=== PATIENT | female | born 1965 | race Caucasian/White ===

== ENCOUNTER 2023-04-15 06:52 | Day surgery (SDC) | payer OTHER, SELFPAY ==
[2023-04-15] VITALS (12 sets, daily range): BP systolic 101–139; BP diastolic 65–94; PULSE 40–73; RESP 14–18; TEMP 36.2–36.4; O2SAT 95–98; BMI 29.4
--- OUTSIDE RECORDS SUMMARY | 2023-04-15 06:54 | XMS_ITS | Encounter Summary ---
Author Name Unknown Organization [facility] Address [address] [place] [address] Care Team Providers Care Slope Tender Name Role Phone Elsewhere, Pcp Primary Care Provider Unavailabl e Reason for Visit * Reason Comments Knee Pain Presents with knee p ain that started this morning Encounter Details Date Type Department Care Team (Late st Contact Info) Description 01/26/2023 1:43 PM JAVA SWING DEVELOPER - 01/26/2023 4:11 PM JAVA SWING DEVELOPER Emergency [facility] [address] [place] [address] [phone] Shanell Ma, XIOMARA, C.N.P., R.N. [address] [phone] Pain Knee Left (Primary Dx) Discharge Disposition: Home or Self Care Social History Tobacco Use Types Packs/Day Years Used Date Smoking Tobacco: Never Smokeless Tobacco: Never Nutrition Answer Date Recorded Nutrition: EVOO Fat Source Unknown 04/21 Nutrition: Servings of Fruits/Vegetables per Day Not on file 04/21/2020 Dental Answer Date Recorded Dental: Regular Dentist Unknown 04/21/19 21 Sex and Gender Information Value Date Recorded Sex Assigned at Not on file Gender Identity Not on file Sexual Orientation Not on file documented as of this encounter Last Filed Vital Signs Vital Sign Reading Time Taken Comments Blood Pressure 159/76 01/26/2023 1:45 PM JAVA SWING DEVELOPER Pulse 61 01/26/2023 1:58 PM JAVA SWING DEVELOPER Temperature 36.8 ??C (98.2 ??F) 01/26/2023 1:58 PM CS T Respiratory Rate 16 01/26/2023 1:58 PM JAVA SWING DEVELOPER Oxygen Saturation 96% 01/26/2023 1:45 PM JAVA SWING DEVELOPER Inhaled Oxygen Concentration - - Weight - - Height - - Body Mass Index - - documented in this encounter Discharge Instructions * Discharge Instructions* Shanell Ma APRN, C.NCarlosP., R.N. - 01/26/2023 4:03 PM JAVA SWING DEVELOPER Plan Rest, ice Continue to use ibuprofen/Tylenol as needed Use knee immobilizer to help provide support Elevate Return emergency department for worsening symptoms or if you reconsider DVT (clot) workup. SWING DEVELOPER * Attachments The following attachments cannot be sent through Care Everywhere. * Acute Knee Pain Adult Jwyr-al-Hv[facility] ([place]) documented in this encounter ED Notes * Shanell Ma APRN, C.NYuki., R.N. - 01/26/2023 1:47 PM CST Images from the original note were not included. SUBJECTIVE CHIEF COMPLAINT/REASON FOR VISIT Knee Pain (Presents with knee pain that started this morning) HISTORY OF PRESENT ILLNESS History provided by: Patient and medical records lead business analyst needed/used: shirlene Leah Degroot is a very pleasant 57 y.o. with past medical history of knee pain who presents via private car from home/nursing facility/treatment facility for evaluation of knee pain. Patient with ongoing left knee pain over the past 5 years. She states she is normally able to manage with kqxn-hze-ywngvtp medication, rest and ice. Patient driving back from [place] today and had increased discomfort throughout her trip. She states they did get out of the car frequently during the [address] so that she was able to continue to move her leg. Onset of the discomfort started prior to the drive today. Reports some increased swelling around the knee. Onset 6:00 a.m. Location left knee, lateral Duration persistent/constant Character ache Alleviating minimal with ibuprofen aggravating factors ambulation Activity at onset noted this morning upon waking up Associated Sx swelling Radiation none REVIEW OF SYSTEMS Constitutional: Negative for chills and fever. HENT: Negative for congestion and sore throat. Respiratory: Negative for chest tightness and shortness of breath. Cardiovascular: Negative for chest pain and palpitations. Gastrointestinal: Negative for diarrhea, nausea and vomiting. Genitourinary: Negative for dysuria and hematuria. Skin: Negative for rash. Neurological: Negative for dizziness and weakness. OBJECTIVE Initial Vitals Temperature 01/26/23 1358 36.8 ??C Pulse Rate 01/26/23 1345 60 Heart Rate -- Resp Rate 01/26/23 1358 16 Blood Pressure 01/26/23 1345 159/76 SpO2 01/26/23 1345 96 % Pain Score 01/26/23 1357 4 PHYSICAL EXAMINATION Constitutional: Nursing note and vitals reviewed. She is cooperative. HENT: Head: Atraumatic. Mouth/Throat: Oropharynx is clear and moist. Mucous membranes are moist. Eyes: Conjunctivae are normal. Neck: Neck supple. Cardiovascular: Normal rate. Pulmonary/Chest: Effort normal. No respiratory distress. Abdominal: Normal appearance. Musculoskeletal: Cervical back: Neck supple. Left knee: Swelling present. No deformity, effusion or crepitus. Decreased range of motion (Increased discomfort with flexion). Tenderness present over the lateral joint line. Normal alignment. Normal pulse. Legs: Comments: Moves all extremities Distal pulses intact Brisk cap refill Neurological: Alert. Normal speech. Skin: No rash (on exposed skin) noted. ASSESSMENT/PLAN Assessment and Plan Leah Degroot is a 57 y.o. presents with knee pain concerning for DVT, sprain/strain, cellulitis, fractures, phlebitis, tendonitis, CHF, and venous insufficiency. See ED Course. . I reviewed the following external records: office records. ED Course as of 01/26/23 1607 Sun Jan 26, 2023 1347 I performed my initial evaluation of the patient. We discussed emergency department course including testing, treatment, potential disposition based on findings. 1439 Discussed x-ray as well as concern for DVT. Patient would like to proceed with x-ray however Declined d-dimer. Patient feels this is worsening of her chronic knee pain. We did discuss risks involved if blood clot/DVT were present including stroke/PE/disability or . Patient verbalizes understanding of the risk and continues to decline DVT work up at this time. Declines analgesia. 1558 Awaiting XR No acute fracture or dislocation per EDP read Discussed above with patient. Patient states that she has knee immobilizer at home that she will use when needed. She also states that she feels that she is ambulating better now than when she 1st arrived to the ED. patient does not want further workup for DVT despite risks. She has supportive devices home. Reviewing x-ray not seeing significant injury I agree discharge home with supportive devices is reasonable at this time. Discussed above impression, recommendations. Patient to call primary care tomorrow to follow-up, consider MRI. Questions answered to the best of my ability and patient discharged home in stable condition with . Final Diagnoses: as of 01/26/23 1607 Pain Knee Left Shanell Ma APRN, C.N.P., R.N. 01/26/23 1607 SWING DEVELOPER documented in this encounter Plan of Treatment Not on file documented as of this encounter Procedures Procedure Name Priority Date/Time Associated Diagnosis Comments DX KNEE LEFT 4+ VIEWS RAD - Semiurgent (Fast; most ED patients; some inpatients) 01/26/2023 2:54 PM JAVA SWING DEVELOPER documented in this encounter Results * DX Knee Left 4+ Views (01/26/2023 2:54 PM JAVA SWING DEVELOPER) Anatomical Region Laterality Modality Lower Extremity, Knee, Muscu loskeletal RST LOS, Musculoskeletal ARZ LOS, Muskuloskeletal FLA LOS Left Digit al Radiography 01/26/2023 4:22 PM JAVA SWING DEVELOPER Impressions 01/26/2023 4:22 PM JAVA SWING DEVELOPER Moderate knee joint effusion. No acute fracture. Slight tricompartmental degenerative change. Narrative 01/26/2023 4:22 PM JAVA SWING DEVELOPER EXAM: DX KNEE LEFT 4+ VIEWS Procedure Note Dylan Elder M.D. - 01/26/2023 EXAM: DX KNEE LEFT 4+ VIEWS IMPRESSION: Moderate knee joint effusion. No acute fracture. Slight tricompartmentaldegenerative change. Shanell Ma APRN, Rocco.N.P., R.N. I [facility] PROCEDURES documented in this encounter Visit Diagnoses Diagnosis Pain Knee Left- Primary documented in this encounter Care Teams Slope Tender Relationship Specialty Start Date End Date Elsewhere, Pcp PCP - General Family Medicine 06/05/20 documented as of this encounter
--- OUTSIDE RECORDS SUMMARY | 2023-04-15 06:54 | XMS_ITS | Clinical Summary ---
Author Name Unknown Organization [facility] Address [place], [place] [address] Care Team Providers Care Information Scientist Name Role Phone Nella Cordero MD Primary Care Provider [phone] Allergies No known active allergies Medications Medication Sig Dispensed Refills Start Date End Date Status triamcinolone (ARISTOCORT; KENALOG) 0.1 % creamIndications: Dermatitis Apply topically to affected area(s) three times daily. 80 g 0 11/06/2022 Active polyethylene glycol-electrolyt e (GOLYTELY) 236-22.74-6.74 -5.86 gram suspensionIndicat ions:Encounter for screening colonoscopy Drink 2 liters (half the bottle) the day before colonoscopy and 2 liters (remaining prep) 6 hours prior to colonoscopy appointment. 4000 mL 0 02/11/2023 04/09/2023 Discontinued (*Med complete/Reg imen complete/Lev el of care change) Active Problems Problem Noted Date Diagnosed Date Pap smear for cervical cancer screening 09/25/19 Overview: 01/25/2016 NIL/ HPV negative (scans 01/30/2018) 10/24/2021 NIL/ HPV negative Plan: Pap/ HPV due 09/2026 Menorrhagia with regular cycle 06/16/2018 Iron deficiency anemia due to chronic blood loss 06/16/2018 Encounters Date Type Department Care Team Description 04/09/2023 2:00 PM BLOOD AND PLASMA LABORATORY ASSISTANT Preop Visit [facility] [address] [place] [address] Nella Cordero MD Pre-Op Exam (04/15/23, left knee meniscus repair, [facility]) 04/09/2023 Travel 02/21/2023 Orders Only [facility] [address] [facility] [place] [address] Nella Cordero MD <No scans attached> 02/20/2023 9:30 AM BLOOD AND PLASMA LABORATORY ASSISTANT Ancillary Procedure [facility] [address] [facility] [address] 02/20/2023 Travel 02/18/2023 Travel 02/14/2023 9:30 AM BLOOD AND PLASMA LABORATORY ASSISTANT Procedure Only [facility] [address] [place] [address] Aguila Graham MD 02/14/2023 Travel 02/11/2023 Telephone [facility] [address] [facility] [place] [address] Aguila Graham MD Appointment 02/07/2023 Telephone [facility] [address] [place] [address] Aguila Graham MD Appointment Reminder (Colonoscopy 02/14/23); Follow Up 01/28/2023 11:15 AM BLOOD AND PLASMA LABORATORY ASSISTANT Office Visit [facility] [address] [place] [address] Nella Cordero MD ER Follow up ([facility], 01/26/2023, left knee) 01/28/2023 Travel 01/27/2023 Telephone [facility] [address] [place] [address] Nella Cordero MD Hospital F/U (KNEE PAIN) from Last 3 Months Immunizations Name Administration Dates Next Due Influenza, IIV4 11/06/2022,12/28/2020,11/07/2019 Influenza,CCIIV4 PRESERV FREE 12/11/2021 Td (Age >=7 Years) 07/14/2003 Tdap 01/25/2016 Zoster (Shingrix-RZV, recombinant) 10/30/2017, Family History Medical History Relation Name Comments Good Health Daughter 1 Good Health Daughter 2 Hypertension Father Diabetes Mother Hypertension Mother Cancer-breast No Family History Cancer-ovarian No Family History Relation Name Status Comments Daughter 1 Daughter 2 Father Alive Mother Alive Social History Tobacco Use Types Packs/Day Years Used Date Smoking Tobacco: Former Smokeless Tobacco: Never Tobacco Cessation:Counseling Given: Yes Alcohol Use Standard Drinks/Week Comments Yes 6 (1 standard drink = 0.6 oz pur e alcohol) PHQ-2 Answer Date Recorded PHQ-2 TOTAL SCORE 2 11/06/2022 Social Connections Answer Date Recorded Frequency of Communication with Friends and Fami ly 0 11/05/2022 Financial Resource Strain Answer Date R ecorded Difficulty of Paying Living Expenses 3 11/05/2022 Difficulty of Paying Living Expenses Not on file 11/05/2022 Food Insecurity Answer Date Recorded Worried About Running Out of Food in the Last Ye ar 1 11/05/2022 Transportation Needs Answer Date Record ed Lack of Transportation (Medical) 1 11/05/2022 Housing Stability Answer Date Recorded Unable to Pay for Housing in the Last Year 1 11/05/2022 Sex and Gender Information Value Date Recorded Sex Assigned at Not on file Gender Identity Not on file Sexual Orientation Not on file Travel History Travel Start Travel End [facility] 03/21/2023 03/30/2023 Obstetrics History Para Term AB IAB SAB Ectopic Multiple Livin g Live Births 2 2 2 2 Date Outcome GA Total Labor Labor/2nd/3rd Weight Sex Delivery Anes PTL Ysabel A1 A5 Name Cl in Para Para Last Filed Vital Signs Vital Sign Reading Time Taken Comments Blood Pressure 121/78 04/09/2023 2:14 PM BLOOD AND PLASMA LABORATORY ASSISTANT Pulse 59 04/09/2023 2:14 PM BLOOD AND PLASMA LABORATORY ASSISTANT Temperature 36.6 ??C (97.8 ??F) 04/21/2020 2:13 PM CS T Respiratory Rate 14 02/14/2023 10:35 AM BLOOD AND PLASMA LABORATORY ASSISTANT Oxygen Saturation 100% 04/09/2023 2:14 PM BLOOD AND PLASMA LABORATORY ASSISTANT Inhaled Oxygen Concentration - - Weight 87.7 kg (193 lb 6.4 oz) 04/09/2023 2:14 P M BLOOD AND PLASMA LABORATORY ASSISTANT Height 174.9 cm (5' 8.86) 04/09/2023 2:14 PM CS T Body Mass Index 28.68 04/09/2023 2:14 PM BLOOD AND PLASMA LABORATORY ASSISTANT Plan of Treatment Health Maintenance Due Date Last Done Comments HIV for age 15-65 1980 Mammogram for age 45-75 11/05/2023 11/05/19 23, 10/24/2021, 10/17/2020, Additional history exists Depression screening for age 12+ 11/08/2023 11/07/2022, 11/06/2022, 10/17/2020, Additional history exists BMI (ht and wt on same day) for age 18+ 04/09/2024 04/09/2023, 11/06/2022, 10/24/2021, Additional history exists Lipids for age 45-75 10/17/2025 10/17/2020 Tetanus booster 01/24/2026 01/25/2016, 07/14/2003 Pap test for age 21-65 10/24/2026 , 10/24/2021, 01/25/2016 (Verified in Care Everywhere or Patient Record) Colonoscopy through age 75 02/14/203002/14, 02/14/2023, 02/14/2023, Additional history exists Tdap Completed 01/25/2016 Zoster (shingles) series for age 50+ Completed 10/30/2017, 07/02/2017 Fecal testing non-DNA (FIT,FOBT,iFOBT) for age 45-75 Discontinued 12/22/2019 Hepatitis C screening for age 18-79 Completed 10/24/2021 Influenza for age 50-64 Completed 11/07/19, 12/11/2021, 12/28/2020, Additional history exists COVID-19 vaccine series Completed 12/01/19 23, 10/30/2021, 01/12/2021, Additional history exists Pneumococcal series for age 6-64 Aged Out No longer eligible based on patient's age to complete this topic Procedures Procedure Name Priority Date/Time Associated Diagnosis Comments MR KNEE LEFT WO Routine 02/20/2023 10:00 AM BLOOD AND PLASMA LABORATORY ASSISTANT Chronic pain of left knee COLONOSCOPY 02/14/2023 9:37 AM BLOOD AND PLASMA LABORATORY ASSISTANT COLONOSCOPY SCREENING Routine 02/14/2023 9:17 AM BLOOD AND PLASMA LABORATORY ASSISTANT History of colon polyps from Last 3 Months Results * MR KNEE LEFT WO (02/20/2023 10:00 AM BLOOD AND PLASMA LABORATORY ASSISTANT) Anatomical Region Laterality Modality KNEE L Magnetic Resonan ce 02/21/2023 11:1 7 AM BLOOD AND PLASMA LABORATORY ASSISTANT Impressions 02/21/2023 11:17 AM BLOOD AND PLASMA LABORATORY ASSISTANT 1. Multiple tearing medial meniscus. 2. Cleavage tear body lateral meniscus. 3. Mild tricompartmental degenerative chondromalacia. 4. Small joint effusion. Dictated by Tra Jason MD @ 02/21/2023 11:17:59 AM (Electronically Signed) Narrative 02/21/2023 11:17 AM BLOOD AND PLASMA LABORATORY ASSISTANT For Patients: ??As a result of the Cures Act, medical imaging exams and procedure reports are released immediately into your electronic medical record. ??You may view this report before your referring provider. ??If you have questions, please contact your health care provider. INDICATION: Left lateral knee pain. COMPARISON: None. TECHNIQUE: Axial T1 and PD fat-sat, sagittal PD and T2 fat-sat and coronal PD and PD fat- sat left knee sequences. FINDINGS: Medial compartment: Meniscus: Somewhat complex shallow degenerative tearing with mostly longitudinal orientation at the inner 3rd of the posterior horn. Marginal tearing extends to the junction with the root. Root is intact. Horizontal undersurface tear posterior body. Articular cartilage: Shallow grade 2 thinning. MCL: Intact. - Cruciate ligaments: ACL: Intact. PCL: Intact. - Lateral compartment: Meniscus: Horizontal tear may be cleavage-type exiting through the free margin in the body. Mucoid intersubstance signal in the posterior horn. Articular cartilage: Shallow undulating grade 2 thinning in the plateau. Lateral collateral complex: Thickened IT band proximal from the femoral condyle with no surrounding edema may be remote injury related. Remaining structures intact and unremarkable. - Patellofemoral compartment: Patchy increased T2 signal in shallow grade 2 thinning. - Extensor mechanism: Distal quadriceps tendon and patellar tendon are intact with anatomic patellar alignment. - Bones and soft tissues: Small joint effusion. Varices in the subcutaneous adipose. No fracture or bone lesion. Procedure Note Tra Jason MD - 02/21/2023 For Patients: As a result of the Cures Act, medical imagingexams and procedure reports are released immediately into your electronicmedical record. You may view this report before your referring provider.If you have questions, please contact your health care provider. INDICATION: Left lateral knee pain. COMPARISON: None. TECHNIQUE: Axial T1 and PD fat-sat, sagittal PD and T2 fat-sat and coronal PD and PDfat-sat left knee sequences. FINDINGS: Medial compartment: Meniscus: Somewhat complex shallow degenerative tearing with mostlylongitudinal orientation at the inner 3rd of the posterior horn. Marginaltearing extends to the junction with the root. Root is intact. Horizontalundersurface tear posterior body. Articular cartilage: Shallow grade 2 thinning. MCL: Intact. - Cruciate ligaments: ACL: Intact. PCL: Intact. - Lateral compartment: Meniscus: Horizontal tear may be cleavage-type exiting through the freemargin in the body. Mucoid intersubstance signal in the posterior horn. Articular cartilage: Shallow undulating grade 2 thinning in the plateau. Lateral collateral complex: Thickened IT band proximal from the femoralcondyle with no surrounding edema may be remote injury related. Remainingstructures intact and unremarkable. - Patellofemoral compartment: Patchy increased T2 signal in shallow grade 2thinning. - Extensor mechanism: Distal quadriceps tendon and patellar tendon areintact with anatomic patellar alignment. - Bones and soft tissues: Small joint effusion. Varices in the subcutaneousadipose. No fracture or bone lesion. IMPRESSION: 1. Multiple tearing medial meniscus. 2. Cleavage tear body lateral meniscus. 3. Mild tricompartmental degenerative chondromalacia. 4. Small joint effusion. Dictated by Tra Jason MD @ 02/21/2023 11:17:59 AM (Electronically Signed) Nella Cordero MD MR * COLONOSCOPY (02/14/2023 9:37 AM BLOOD AND PLASMA LABORATORY ASSISTANT) 02/14/2023 9:37 AM BLOOD AND PLASMA LABORATORY ASSISTANT Narrative Transcriptions Aguila Graham MD - 02/14/2023 11:16 AM CST Patient Name: Leah Nepali Procedure Date: 02/14/2023 Gender: Female Date of : 1965 Admit Type: Outpatient Procedure: Colonoscopy Proceduralist: Aguila Graham MD , Ingrid Dugan (Nurse), Mirna Felipe (Nurse) Referring MD: Nella Cordero Indications/Pre-Op Diagnosis: High risk colon cancer surveillance:Personal history of colonic polyps, Last colonoscopy: date unknown (unable to locate lastcolonoscopy report) Medications: Fentanyl 100 micrograms IV, Midazolam 3 mgIV, The level of sedation administered wasmoderate Procedure Description: The patient had risks, benefits and alternatives explained to andgave informed consent. The patient had a stable cardiopulmonary status and judged an adequate candidate for conscious sedation. The [id number] was passed through the anus and advanced to the cecum, identified by appendiceal orifice and ileocecal valve. Thecolonoscopy was performed without difficulty. The patient tolerated the procedure well. The quality of the bowel preparation was good. The ileocecal valve, appendiceal orifice, and rectum were photographed. Complications: No immediate complications. Estimated Blood Loss & Specimen: Estimated blood loss: none. Specimen collected - None Findings: The perianal and digital rectal examinations were normal. The entire examined colon appeared normal. Impressions/Post-Op Diagnosis: - The entire examined colon is normal. - No specimens collected. Recommendation: - Patient has a contact number available for emergencies. The signsand symptoms of potential delayed complications were discussed with the patient. Return to normal activities tomorrow. Written discharge instructions were provided to the patient. - Resume previous diet. - Continue present medications. - Repeat colonoscopy in 7-10 years for surveillance. Moderate Sedation: A time out was performed before the procedure. Moderate (conscious) sedation was administered by the endoscopy nurse and supervised bythe endoscopist. The following parameters were monitored: oxygensaturation, heart rate, blood pressure, EKG, CO2, respiratory rate, adequacy of pulmonary ventilation and reponse to care. Please refer to the patient's medical record flowsheets and nursing notes for moderate sedation details. Total physician intraservice time was 15 minutes. Aguila Graham MD 02/14/2023 10:20:52 AM This report has been signed electronically. Note Initiated On: 02/14/2023 9:37 AM Procedure Code(s): --- Professional --- 85911, Colonoscopy, flexible; diagnostic, including collection of specimen(s) bybrushing or washing, when performed (separateprocedure) Diagnosis Code(s): --- Professional --- Z86.010, Personal history of colonicpolyps CPT copyright 2021 [employer]. All rights reserved. The codes documented in this report are preliminary and upon performance tester reviewmay be revised to meet current compliance requirements. Scope In: 9:53:09 AM Scope Withdrawal Time 0 hours 7 minutes 5 seconds Scope Out: 10:06:08 AM Aguila Graham MD PROCEDURE ORD from Last 3 Months Care Teams Information Scientist Relationship Specialty Start Date End Date Nella Cordero MD [address] [place] [address] PCP - General Family Practice 06/16/18
--- OUTSIDE RECORDS SUMMARY | 2023-04-15 06:54 | XMS_ITS ---
Author Name Unknown Organization [facility] Address [address] [place] [address] Care Team Providers Care Bricklayer Tender Name Role Phone Unavailable Unavailable Unavailable Surgery Details Not on file Complications Check Surgery Details section. Procedure Estimated Blood Loss Check Surgery Details section. Procedure Findings Check Surgery Details section. Procedure Specimens Taken Check Surgery Details section.
--- OUTSIDE RECORDS SUMMARY | 2023-04-15 06:54 | XMS_ITS | Referral Summary ---
Author Name Unknown Organization [facility] Address [address] [place] [address] Care Team Providers Care Python Web Developer Name Role Phone Elsewhere, Pcp Primary Care Provider Unavailabl e Source Comments Patient records contain information from all sites at [facility]. For routine questions regarding patient records, call [phone] during business hours, M-F 8:00 AM - 5:00 PM Central Time. Record requests for emergency care only can be directed to [phone] at any time.[facility] Encounters Date Type Department Care Team Description 02/05/2023 2:15 PM MAGNETIC HEALER Comprehensive Visit Department of Rehabilitation Services in [address] [phone] Nella Cordero M.D. Sharon Mckeon, P.T. Pain Knee Left; Other Chronic Pain 01/26/2023 1:43 PM MAGNETIC HEALER - 01/26/2023 4:11 PM MAGNETIC HEALER Emergency [facility] [address] [place] [phone] Shanell Ma, XIOMARA, C.N.P., R.N. Pain Knee Left (Primary Dx) Discharge Disposition: Home or Self Care from Last 3 Months Allergies No known active allergies Medications No known medications Active Problems Problem Noted Date Diagnosed Date No Current Problems or Disability 05/22/2013 Overview: NO ACTIVE PROBLEMS Immunizations Name Administration Dates Next Due RZV (SHINGRIX) 10/30/2017,07/02/2017 Td (Adult), adsorbed 07/14/2003 Tdap 01/25/2016 Social History Tobacco Use Types Packs/Day Years [...] on file Sexual Orientation Not on file Last Filed Vital Signs Vital Sign Reading Time Taken Comments Blood Pressure 159/76 01/26/2023 1:45 PM MAGNETIC HEALER Pulse 61 01/26/2023 1:58 PM MAGNETIC HEALER Temperature 36.8 ??C (98.2 ??F) 01/26/2023 1:58 PM CS T Respiratory Rate 16 01/26/2023 1:58 PM MAGNETIC HEALER Oxygen Saturation 96% 01/26/2023 1:45 PM MAGNETIC HEALER Inhaled Oxygen Concentration - - Weight 87.6 kg (193 lb 2 oz) 06/18/2017 10:10 AM CDT Height 174 cm (5' 8.5) 06/18/2017 10:10 AM CDT Body Mass Index 28.93 06/18/2017 10:10 AM CDT Plan of Treatment Not on file Procedures Procedure Name Priority Date/Time Associated Diagnosis Comments DX KNEE LEFT 4+ VIEWS RAD - Semiurgent (Fast; most ED patients; some inpatients) 01/26/2023 2:54 PM MAGNETIC HEALER from Last 3 Months Results * DX Knee Left 4+ Views (01/26/2023 2:54 PM MAGNETIC HEALER) Anatomical Region Laterality Modality Lower Extremity, Knee, Muscu loskeletal RST LOS, Musculoskeletal ARZ LOS, Muskuloskeletal FLA LOS Left Digit al Radiography 01/26/2023 4:22 PM MAGNETIC HEALER Impressions 01/26/2023 4:22 PM MAGNETIC HEALER Moderate knee joint effusion. No acute fracture. Slight tricompartmental degenerative change. Narrative 01/26/2023 4:22 PM MAGNETIC HEALER EXAM: DX KNEE LEFT 4+ VIEWS Procedure Note Dylan Elder M.D. - 01/26/2023 EXAM: DX KNEE LEFT 4+ VIEWS IMPRESSION: Moderate knee joint effusion. No acute fracture. Slight tricompartmentaldegenerative change. Shanell Ma APRN, C.N.P., R.N. I MG DIAGNOSTIC IMAGING PROCEDURES from Last 3 Months Care Teams Python Web Developer Relationship Specialty Start Date End Date Elsewhere, Pcp PCP - General Family Medicine 06/05/20
--- OUTSIDE RECORDS SUMMARY | 2023-04-15 06:54 | XMS_ITS | Encounter Summary ---
Author Name Unknown Organization [facility] Address [address] [place] [address] Care Team Providers Care Corporate Pilot Name Role Phone Elsewhere, Pcp Primary Care Provider Unavailabl e Encounter Details Date Type Department Care Team (Latest Contact Info) Description 06/24/2022 10:30 AM CDT Clinical Support Department of Integrative Medicine in [place], [place] [address] [place] [phone] Jeanie Bear M.D. 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 She also wants something to strengthen her core and release tension in her neck. Her left knee bothers heronce in awhile. I observed she has tight quads and hip flexors. I directed her to do several movements to observe where she is tight and where she is weak. We wentthrough a series of poses on the ground and then did a few standing. She will most probably do her practice in the afternoon or early evening. We agreed she would practice the routine that I design for her and come back for another private in 6-8 weeks. documented in this encounter Plan of Treatment Not on file documented as of this encounter Visit Diagnoses Not on filedocumented in this encounter Care Teams Corporate Pilot Relationship Specialty Start Date End Date Elsewhere, Pcp PCP - General Family Medicine 06/05/20 documented as of this encounter
--- OUTSIDE RECORDS SUMMARY | 2023-04-15 06:54 | XMS_ITS | Encounter Summary ---
Author Name Unknown Organization [facility] Address [address] [place] [address] Care Team Providers Care Traffic Clerk Name Role Phone Elsewhere, Pcp Primary Care Provider Unavailabl e Reason for Visit * Appointment Request (Routine) - Closed Specialty Diagnoses / Procedures Referred By Contact Referred To Contact Physical Medicine and Rehabilitation Referral ID Status Reason Start Date Expiration Date Visits Re quested Visits Authorized [id number] Closed 01/28/2023 01/28/2024 1 1 Encounter Details Date Type Department Care Team (Latest Contact Info) Description 02/05/2023 2:15 PM ROUTER OPERATOR PIN Comprehensive Visit Department of Rehabilitation Services in [address] [phone] Nella Cordero M.D. [address] [place] [phone] Sharon Mckeon, P.T. [address] [place] [phone] Pain Knee Left; Other Chronic Pain Social History Tobacco Use Types Packs/Day Years [...] on file documented as of this encounter Consult Notes * Sharon Mckeon, P.T. - 02/05/2023 2:15 PM CST Physical Therapy Outpatient Evaluation/Treatment SUBJECTIVE Patient's Name: Leah Degroot Referring Provider: No ref. provider found Visit Diagnosis: 1. Pain Knee Left 2. Other Chronic Pain Reason for Referral: PT eval and treat Payor: [employer] / Plan: [employer] / Product Type: Indemnity / Epic Visit Count: 1 PERTINENT MEDICAL / SURGICAL HISTORY: Patient Active Problem List Diagnosis No Current Problems or Disability Past Surgical History: Procedure Laterality Date APPENDECTOMY at age 9 COLONOSCOPIC POLYPECTOMY N/A 02/15/2016 Colonoscopic polypectomy Patient presents to outpatient physical therapy for evaluation of symptoms including: Left knee pain History of Present Illness: Patient reports a chronic history of left knee pain over the last 5-10 years. She reports intermittent flares which team to improve with rest and ice. Patient reports she had increased difficulty over the summer where she was unable to bike she was walking 4 miles a day and was icing routinely. Recently she went to a wedding and had a 7 hour car ride and was unable to weightbear through the left lower extremity after that. Patient denies any catching, locking or giving out. Patient's symptoms are located on posterior lateral corner of the left knee with some intermittent pain along the inferior medial border of the patella. Aggravating Factors: Descending stairs while flexing the knee. Relieving Factors: Icing, ibuprofen. Prior Function/Occupational Profile: Intermittent history of left knee pain with resolution of symptoms in between episodes. Patient has a massage therapist. Additional Staff Present During Session: no Patient goals: Resolution of symptoms OBJECTIVE PHYSICAL EXAM Pain: 4/10-10/10 left posterolateral knee. Ortho Exam Patient ambulates into physical therapy safely independently with a nonantalgic gait pattern. Patient has palpable discomfort in the left posterolateral corner of the knee. Knee range of motion 0?? of knee extension which is uncomfortable at end range to 135?? of knee flexion. Patient demonstrates normal patellar mobility. Patient demonstrates independent quad set. Patient demonstrates independent straight leg raise without extension lag. Manual muscle testing the left lower extremity is a 5/5 in strength with the exception of the gluteus medius at a 4/5. Vivek's test did reproduce discomfort. No catching or locking noted. Anterior-posterior drawer were negative. Valgus and varus stresses were negative. Samreen's test was negative. Left knee X-Ray 01/26/23: IMPRESSION: Moderate knee joint effusion. No acute fracture. Slight tricompartmental degenerative change. TREATMENT Treatment today consisted of: Today we initiated patient education in home exercise program. Home Exercise Program/Education: Access Code: [email or web address] URL: [email or web address] Date: 02/05/2023 Prepared by: Sharon Mckeon Exercises - Standing Hamstring Stretch with Step - 1 x daily - 7 x weekly - 1 sets - 2 reps - 30 hold - Standing Bilateral Gastroc Stretch with Step - 1 x daily - 7 x weekly - 1 sets - 2 reps - 30 hold - Standing Soleus Stretch on Step - 1 x daily - 7 x weekly - 1 sets - 2 reps - 30 hold - Supine Quadriceps Stretch with Strap on Table - 1 x daily - 7 x weekly - 1 sets - 2 reps - 30 hold - Supine Quad Set - 1 x daily - 7 x weekly - 3 sets - 10 reps - Supine Straight Leg Raises - 1 x daily - 7 x weekly - 3 sets - 10 reps - Sidelying Hip Abduction - 1 x daily - 7 x weekly - 3 sets - 10 reps - Seated Hip Abduction with Resistance - 1 x daily - 7 x weekly - 3 sets - 10 reps Assessment Clinical Impression: Patient presents to physical therapy with signs and symptoms consistent with left knee pain. Impairments: Pain, tightness, and weakness. Functional deficits: Decreased positional activity tolerance. Rehab Potential: Patient has good potential to achieve established physical therapy goals within the time frame outlined below, provided active participation in the physical therapy treatment plan and home program. Functional Goals and Timeframes: PT Outpatient Goals PT Goal #1: Patient will safely independently perform an independent home exercise program. PT Goal #1 Date: 03/21/23 PT Goal #2: Patient will be able to walk her dog without pain reproduction. PT Goal #2 Date: 03/21/23 PT Goal #3: Patient will be able to descend stairs without pain reproduction. PT Goal #3 Date: 03/21/23 PT Goal #4: Patient will demonstrate left lower extremity strength at a 5/5. PT Goal #4 Date: 03/21/23 Plan Patient was educated regarding evaluative findings, diagnosis, prognosis, potential risks and benefits of rehabilitation interventions. A collaborative effort was used to establish goals and plan of care. The patient was informed of the right to make decisions regarding care, including refusal of examination or treatment or selection of services from another provider if desired. The treatment plan may be progressed or modified based upon the patient's response to treatment. Treatment Plan: Start of Plan of Care: 02/05/2023 Number of Visits: Up to 6 visits PT Duration: 6 weeks PT Frequency: Up to 1 time per week Treatment interventions may include: Patient education, home exercise program, strengthening and stretching. Plan for next session: Patient will work on independent home exercise program return if symptoms are not improving or for progression of home exercise program. Time Spent with Patient Evaluations PT Eval - Low Complexity: 40 min Time Tracking Total Treatment Time (min): 40 min ER OPERATOR PIN documented in this encounter Plan of Treatment Not on file documented as of this encounter Visit Diagnoses Diagnosis Pain Knee Left Other Chronic Pain documented in this encounter Care Teams Traffic Clerk Relationship Specialty Start Date End Date Elsewhere, Pcp PCP - General Family Medicine 06/05/20 documented as of this encounter
--- OUTSIDE RECORDS SUMMARY | 2023-04-15 06:54 | XMS_ITS | Clinical Summary ---
Author Name Unknown Organization [facility] Address [address] [place] [address] Care Team Providers Care Bilingual Teacher Name Role Phone Elsewhere, Pcp Primary Care Provider Unavailabl e Source Comments Patient records contain information from all sites at [facility]. For routine questions regarding patient records, call [phone] during business hours, M-F 8:00 AM - 5:00 PM Central Time. Record requests for emergency care only can be directed to [phone] at any time.[facility] Allergies No known active allergies Medications No known medications Active Problems Problem Noted Date Diagnosed Date No Current Problems or Disability 05/22/2013 Overview: NO ACTIVE PROBLEMS Encounters Date Type Department Care Team Description 02/05/2023 2:15 PM VAMP WETTER Comprehensive Visit Department of Rehabilitation Services in [address] [phone] Nella Cordero M.D. Fogarty, Jennifer L, P.T. Pain Knee Left; Other Chronic Pain 01/26/2023 1:43 PM VAMP WETTER - 01/26/2023 4:11 PM VAMP WETTER Emergency [facility] [address] [place] [phone] Shanell Ma, XIOMARA, C.N.P., R.N. Pain Knee Left (Primary Dx) Discharge Disposition: Home or Self Care from Last 3 Months Immunizations Name Administration Dates Next Due RZV (SHINGRIX) 10/30/2017,07/02/2017 Td (Adult), adsorbed 07/14/2003 Tdap 01/25/2016 Family History Medical History Relation Name Comments Hyperlipidemia Father Diabetes Mother Relation Name Status Comments Father Mother Social History Tobacco Use Types Packs/Day Years [...] Comments Blood Pressure 159/76 01/26/2023 1:45 PM VAMP WETTER Pulse 61 01/26/2023 1:58 PM VAMP WETTER Temperature 36.8 ??C (98.2 ??F) 01/26/2023 1:58 PM CS T Respiratory Rate 16 01/26/2023 1:58 PM VAMP WETTER Oxygen Saturation 96% 01/26/2023 1:45 PM VAMP WETTER Inhaled Oxygen Concentration - - Weight 87.6 kg (193 lb 2 oz) 06/18/2017 10:10 AM CDT Height 174 cm (5' 8.5) 06/18/2017 10:10 AM CDT Body Mass Index 28.93 06/18/2017 10:10 AM CDT Plan of Treatment Health Maintenance Due Date Last Done Comments CT Colonography 1965 Cologuard 1965 HIV Screening 1965 Hepatitis B Vaccines (1 of 3 - 3-dose series) 1965 Hepatitis C Screening 1965 Cervical Cancer Screening 01/24/2021 01/25/2016 Colonoscopy 02/14/2023 02/15/2016 Colorectal Cancer Surveillance 02/14/2023 Depression Screening (Annual PHQ-2) 02/24/2023 Fasting Glucose for Diabetes Screening 10/18/2023 10/17/2020, 06/16/2018, 06/05/2016 Mammogram 11/05/2023 11/04/2022, 10/25, 10/24/2021, Additional history exists Lipid (Cholesterol) Screening 10/17/2025 10/17/2020, 06/05/2016, 07/30/2011 DTaP,Tdap,and Td Vaccines (2 - Td or Tdap) 01/24/2026 01/25/2016, 07/14/2003 Zoster Vaccines Completed 10/30/2017, 07/02/2017 Influenza Vaccine Completed 11/06/2022, , 12/28/2020, Additional history exists COVID-19 Vaccine Completed 11/30/2022, 07/2021, 01/12/2021, Additional history exists Pneumococcal vaccine (0-64 years) Aged Out No longer eligible based on patient's age to complete this topic Procedures Procedure Name Priority Date/Time Associated Diagnosis Comments DX KNEE LEFT 4+ VIEWS RAD - Semiurgent (Fast; most ED patients; some inpatients) 01/26/2023 2:54 PM VAMP WETTER from Last 3 Months Results * DX Knee Left 4+ Views (01/26/2023 2:54 PM VAMP WETTER) Anatomical Region Laterality Modality Lower Extremity, Knee, Muscu loskeletal RST LOS, Musculoskeletal ARZ LOS, Muskuloskeletal FLA LOS Left Digit al Radiography 01/26/2023 4:22 PM VAMP WETTER Impressions 01/26/2023 4:22 PM VAMP WETTER Moderate knee joint effusion. No acute fracture. Slight tricompartmental degenerative change. Narrative 01/26/2023 4:22 PM VAMP WETTER EXAM: DX KNEE LEFT 4+ VIEWS Procedure Note Dylan Elder M.D. - 01/26/2023 EXAM: DX KNEE LEFT 4+ VIEWS IMPRESSION: Moderate knee joint effusion. No acute fracture. Slight tricompartmentaldegenerative change. Shanell Ma APRN C.N.P., R.N. I MG DIAGNOSTIC IMAGING PROCEDURES from Last 3 Months Care Teams Bilingual Teacher Relationship Specialty Start Date End Date Elsewhere, Pcp PCP - General Family Medicine 06/05/20
[2023-04-15] MEDS: LACTATED RINGERS 1000 ML 1,000 ML 100 ML IV (08:02)
[2023-04-15] MEDS: SODIUM CHLORIDE 0.9 % (FLUSH) 10 ML SYRINGE IVF (08:02)
--- NOTE | 2023-04-15 08:02 | SUR.PREOP ---
pt states she is going through menopause and declines a urine test.
[2023-04-15] MEDS: CEFAZOLIN 2 GM INJ IVP (08:47)
[2023-04-15] MEDS: BUPIVACAINE 0.25% 30 ML INJECTION (09:18)
--- NOTE | 2023-04-15 09:21 | P.ORPRC_ITS ---
Procedure Note Date of procedure: 04/15/23 Procedure: PREOPERATIVE DIAGNOSIS: Left knee medial and lateral meniscus tear POSTOPERATIVE DIAGNOSIS: Left knee medial and lateral meniscus tear NAME OF OPERATION: Left knee arthroscopic partial medial and lateral meniscectomy SURGEON: Julio Escamilla MD INSTRUCTIONAL TECHNOLOGY SPECIALIST: DINORAH Crabtree ANESTHESIA: Spinal ESTIMATED BLOOD LOSS: 0 mL COMPLICATIONS: None SPECIMENS: None DRAINS: None PREOPERATIVE ANTIBIOTICS: Ancef 2 gram INDICATIONS: The patient is a 57-year-old with a history of left knee pain. MRI scan is consistent with a medial and lateral meniscus tear. Despite appropriate nonoperative management, including activity modification, antiinflammatories, [id number] pain medication, bracing, physical therapy, and injections they continue to have pain and disability. Operative intervention was offered. The risks, benefits and expected outcomes were discussed in detail. These included but were not limited to: Infection, bleeding, injury to blood vessel or nerve, venous thromboembolism. All questions were answered to their satisfaction. PROCEDURE: Spinal anesthesia was administered. The patient was placed supine on the operating room table. The left lower extremity was prepped and draped in the usual sterile fashion. The limb was exsanguinated with the Aguila bandage. The pneumatic tourniquet was inflated to 300 mmHg. A standard anterolateral portal was established. The arthroscope was introduced. The working portal was established anteromedially. Diagnostic arthroscopy was performed with findings as follows: The suprapatellar pouch is normal. Articular surface on the patella shows diffuse grade 1/2 change. Articular surface on the trochlea is normal. The medial gutter is normal. The medial compartment shows a focal area of grade 2/3 foreign exchange trader the posterior aspect of the central, weight-bearing portion of the medial femoral condyle. Articular cartilage on the medial tibial plateau is normal. The medial meniscus has a vertical longitudinal tear of the posterior h orn, with horizontal cleavage tearing of the leading edge of the posterior horn Zachary. The notch shows the ACL to be intact. The lateral compartment shows a small focal area of grade 2/3 change on lateral femoral condyle, grade 1/2 change on the lateral tibial plateau. The lateral meniscus shows degenerative tearing of the leading edge of the midbody, into the posterior horn. The lateral gutter is normal. The posterior horn of the medial meniscus was debrided to a stable base using a combination of baskets and lisa through both portals. Likewise, the leading edge of the midbody and posterior horn of the lateral meniscus was debrided with the shaver through both portals. Arthroscopic instruments were removed, the portal sites were Steri-Stripped closed, the knee was infiltrated with 30 mL of 0.25% Marcaine without epinephrine. A dry dressing was applied, the tourniquet was released. Sponge and needle counts were correct x 2. The patient tolerated the procedure well. There were no apparent complications. They were carefully transferred to the hospital bed and taken to the postanesthesia care unit in satisfactory condition. PLAN: The patient will be discharged to home. They may weightbear as tolerates. Range of motion will be unrestricted. They will follow up in the office next week for a wound check.
--- NOTE | 2023-04-15 09:33 | W.ANESCHARGE ---
Anesthesia Charges Start Date/Time Anesthesia Start Date: 04/15/23 Anesthesia Start Time: 08:30 Stop Date/Time Anesthesia Stop Date: 04/15/23 Anesthesia Stop Time: 09:34
--- NOTE | 2023-04-15 10:42 | W.ANESCHARGE ---
Anesthesia Charges Start Date/Time Anesthesia Start Date: 04/15/23 Anesthesia Start Time: 08:30 Stop Date/Time Anesthesia Stop Date: 04/15/23 Anesthesia Stop Time: 09:34
[2023-04-15] MEDS: ACETAMINOPHEN 500 MG TABLET 1000 MG PO (10:45)
== END 2023-04-15 11:31 | disposition home or self-care (01) ==
PROVIDERS: PCP Family Medicine; Visit Provider Orthopaedic Surgery
PROC: (CPT 29870; principal; 2023-04-15 08:45)
DX: M23.222 Derangement of posterior horn of medial meniscus due to old tear or injury, left knee (principal); M23.252 Derangement of posterior horn of lateral meniscus due to old tear or injury, left knee
CPT/HCPCS: 29880; 01400; A9270; J0665; J0690; J1100; J2250; J2405; J2704; J3010; J7120